=== PATIENT | male | born 1955 | race Caucasian/White ===

== ENCOUNTER 2016-08-03 18:05 | Inpatient (IN) | payer OTHER ==
[~2016-08-03 18:05] MED LIST: ALLOPURINOL100 M1 PO; AMBIEN5 M1 PO; AMILORIDE HCL5 M1 PO; AMOXICILLIN500 MG PO; AVINZA60 MG; BACTRIM DS TABL1 TAB PO; BYSTOLIC10 M1 PO; BYSTOLIC10 MG PO; CHANTIX1 M1 PO; COLACE100 M1 PO; COLCHICINE0.6 M2 PO; COLCRYS0.6 M1 PO; COMBIVENT INH14.7 GM; COMBIVENT RESPIM4 G1 INH; DIOVAN HCT 160/1 TAB; FA-80.8 M1 PO; FEOSOL325 M1 PO; FLOMAX0.4 M1 PO; FLUTICASONE PRO16 G1; INDOMETHACIN75 M1 PO; K-TAB ER20 ME1 PO; KLOR-CON M20 MEQ/TAB PO; LASIX40 M1 PO; LASIX80 M1 PO; LIPITOR10 M1 PO; METOLAZONE5 M1 PO; MORPHINE SULFAT15 M1 PO; MORPHINE SULFAT15 MG PO; MORPHINE SULFAT60 MG; MULTIVITAMIN1 TAB; NORCO 5/325 TAB1 TAB PO; OMEGA 31 CAP; PAIN & FEVER325 M1 PO; PROAIR HFA8.5 GM INH; PROTONIX40 M2 PO; PROTONIX40 MG; STOOL SOFTENER PO; STOP THE FOLLOWING:; SYMBICORT 160-1 PUFF INH; SYNTHROID50 MCG; TOPIRAMATE PO; TORSEMIDE100 M1 PO; VALIUM10 MG; VITAMIN B12500 MCG; WELLBUTRIN XL300 M3 PO; XANAX0.5 M1 PO; XARELTO20 M1 PO; ZAROXOLYN PO; [UNRECOGNIZED DRUG - REMARK]
[2016-08-03] MEDS ORDERED: CARAFATE1 G2 PO (18:58)
[2016-08-03 19:17] LABS: BASO % 0.3 % (0-2); BASO ABSOLUTE COUNT 0.1 tho/cmm (0.0-0.2); EOS % 1.1 % (0-7); EOSINOPHIL ABSOLUTE COUNT 0.2 tho/cmm (0.0-0.7); HCT-HEMATOCRIT 40.7 % (36.0-53.5); HGB-HEMOGLOBIN 12.9 gm/dl (13.5-17.0); IMMATURE GRANULOCYTES PERCENT 0.7 % (0-0.3); LYMPH % 9.2 % (20-45); LYMPH ABSOLUTE COUNT 1.4 tho/cmm (0.8-4.5); MCH (MEAN CORPUSCULAR HGB) 33.2 pg (28.0-32.0); MCHC MEAN CORPUSCULAR HGB CONC 31.7 % (32.0-36.0); MCV (MEAN CELL VOLUME) 104.9 fl (82.0-96.0); MEAN PLATELET VOLUME 10.3 cmc (9.4-12.4); MONO % 7.9 % (0-12); MONOCYTE ABSOLUTE COUNT 1.2 tho/cmm (0.0-1.2); NEUTROPHILS % 80.8 % (40-80); PLATELET COUNT 260 tho/cmm (150-450); RED BLOOD COUNT 3.88 mil/cmm (4.40-5.70); RED CELL DISTRIBUTION WIDTH 15.7 % (12.4-16.4); WHITE BLOOD COUNT 14.8 tho/cmm (4.0-10.0)
[2016-08-03 19:31] LABS: ALB/GLOB RATIO 0.6 (0.8-2.0); ALBUMIN 3.4 g/dl (3.5-5.0); ALKALINE PHOSPHATASE 112 U/L (33-138); ALT/SGPT 40 U/L (12-78); AMYLASE 46 U/L (20-90); ANION GAP 13 mmol/L (0-20); AST/SGOT 71 U/L (10-40); BILIRUBIN,TOTAL 1.9 mg/dl (0.0-1.5); BLOOD UREA NITROGEN 36 mg/dl (6-24); CALCIUM 9.3 mg/dl (8.5-10.5); CARBON DIOXIDE-VENOUS 29 mmol/L (22-32); CHLORIDE 101 mmol/l (96-110); CREATININE 2.31 mg/dl (0.60-1.30); GLUCOSE 129 mg/dL (70-110); LIPASE 611 U/L (73-393); POTASSIUM 4.3 mmol/L (3.7-5.1); SODIUM 139 mmol/L (135-145); eGFR VALUE FOR BLACK 34 mL/Min
[2016-08-03 19:54] LABS: URINE BILIRUBIN MODERATE (NEG); URINE BLOOD SMALL (NEG); URINE GLUCOSE (UA) NEGATIVE (NEG); URINE KETONE SMALL (NEG); URINE LEUKOCYTE ESTERASE POSITIVE (NEG); URINE NITRITE NEGATIVE (NEG); URINE PROTEIN SMALL (NEG); URINE SPECIFIC GRAVITY 1.015 (1.003-1.030)
[2016-08-03 19:55] LABS: URINE APPEARANCE HAZY; URINE COLOR ORANGE
[2016-08-03 19:59] LABS: URINE BACTERIA 1+
[2016-08-03 20:00] LABS: URINE RBC 0 /[HPF] (0-5); URINE WBC 0-3 /[HPF] (0-5)
[2016-08-04 05:01] LABS: BASO % 0.2 % (0-2); EOS % 2.1 % (0-7); EOSINOPHIL ABSOLUTE COUNT 0.2 tho/cmm (0.0-0.7); HCT-HEMATOCRIT 35.1 % (36.0-53.5); HGB-HEMOGLOBIN 10.9 gm/dl (13.5-17.0); IMMATURE GRANULOCYTES ABSOLUTE 0.06 tho/cmm (0-0.03); IMMATURE GRANULOCYTES PERCENT 0.6 % (0-0.3); LYMPH % 14.7 % (20-45); LYMPH ABSOLUTE COUNT 1.5 tho/cmm (0.8-4.5); MCH (MEAN CORPUSCULAR HGB) 32.8 pg (28.0-32.0); MCHC MEAN CORPUSCULAR HGB CONC 31.1 % (32.0-36.0); MCV (MEAN CELL VOLUME) 105.7 fl (82.0-96.0); MEAN PLATELET VOLUME 10.1 cmc (9.4-12.4); MONO % 7.1 % (0-12); MONOCYTE ABSOLUTE COUNT 0.7 tho/cmm (0.0-1.2); NEUTROPHIL ABSOLUTE COUNT 7.8 tho/cmm (1.6-8.0); NEUTROPHIL-AUTOMATED 7.8 tho/cmm (1.6-8.0); NEUTROPHILS % 75.3 % (40-80); PLATELET COUNT 207 tho/cmm (150-450); RED BLOOD COUNT 3.32 mil/cmm (4.40-5.70); RED CELL DISTRIBUTION WIDTH 15.9 % (12.4-16.4); WHITE BLOOD COUNT 10.3 tho/cmm (4.0-10.0)
[2016-08-04 05:08] LABS: INR 1.2 INR (0.9-1.1); PROTHROMBIN TIME 13.5 SECONDS (9.0-13.6)
[2016-08-04 05:16] LABS: ALB/GLOB RATIO 0.6 (0.8-2.0); ALBUMIN 2.7 g/dl (3.5-5.0); ALKALINE PHOSPHATASE 91 U/L (33-138); ALT/SGPT 32 U/L (12-78); AMYLASE 35 U/L (20-90); ANION GAP 11 mmol/L (0-20); AST/SGOT 49 U/L (10-40); BILIRUBIN,DIRECT 0.8 mg/dl (0.0-0.3); BILIRUBIN,INDIRECT 0.7 mg/dL (0.0-1.0); BILIRUBIN,TOTAL 1.5 mg/dl (0.0-1.5); BLOOD UREA NITROGEN 37 mg/dl (6-24); C-REACTIVE PROTEIN 11.2 mg/dl (0-0.9); CALCIUM 7.9 mg/dl (8.5-10.5); CARBON DIOXIDE-VENOUS 29 mmol/L (22-32); CHLORIDE 105 mmol/l (96-110); CREATININE 2.38 mg/dl (0.60-1.30); GLUCOSE 107 mg/dL (70-110); MAGNESIUM 1.3 mg/dl (1.3-2.6); PHOSPHOROUS 2.8 mg/dl (2.5-4.9); POTASSIUM 4.1 mmol/L (3.7-5.1); SODIUM 141 mmol/L (135-145); eGFR VALUE FOR BLACK 33 mL/Min
[2016-08-04 05:27] LABS: LIPASE 336 U/L (73-393); TSH-THYROID STIMULATING HORM. 4.05 uIU/ml (0.40-3.80)
[2016-08-05 13:59] LABS: URINE PRT/CR RATIO 0.07 Ratio (0.0-0.20); URINE TOTAL PROTEIN-RANDOM 5.6 mg/dl (<11.8)
--- NOTE | 2016-08-05 21:06 | NUR ---
VIRTUAL CARE NOTE: ASSESSMENT DEFERRED. PT EITHER WITH STAFF OR SLEEPING. WILL CONTINUE WITH CHART REVIEW.
[2016-08-06 06:14] LABS: ANION GAP 12 mmol/L (0-20); BLOOD UREA NITROGEN 25 mg/dl (6-24); CALCIUM 7.4 mg/dl (8.5-10.5); CARBON DIOXIDE-VENOUS 26 mmol/L (22-32); CHLORIDE 105 mmol/l (96-110); CREATININE 1.73 mg/dl (0.60-1.30); GLUCOSE 83 mg/dL (70-110); POTASSIUM 3.6 mmol/L (3.7-5.1); SODIUM 139 mmol/L (135-145); eGFR VALUE FOR BLACK 48 mL/Min
--- NOTE | 2016-08-06 13:38 | NUR ---
virtual care note: checked in with pt at this time, he is getting up from his chair to independently go for a walk. states he gets up and moves around frequently. does not have any questions or needs at this time. encouraged him to call staff if he needs anything. states he feels "much better" today than yesterday/last evening. hoping to discharge home soon. Pt has noted hx of CHF. did look back to see when his last echocardiogram was done, which was March 01, 2016 with an EF calculated at 60% per report. Pt on scheduled BP meds and lasix at home. will continue to monitor. electronic chart reviewed.
[2016-08-07 05:50] LABS: HGB-HEMOGLOBIN 10.5 gm/dl (13.5-17.0); PLATELET COUNT 258 tho/cmm (150-450)
[2016-08-07 06:10] LABS: ANION GAP 13 mmol/L (0-20); BLOOD UREA NITROGEN 23 mg/dl (6-24); CALCIUM 7.7 mg/dl (8.5-10.5); CARBON DIOXIDE-VENOUS 26 mmol/L (22-32); CHLORIDE 102 mmol/l (96-110); CREATININE 1.78 mg/dl (0.60-1.30); GLUCOSE 84 mg/dL (70-110); POTASSIUM 3.7 mmol/L (3.7-5.1); SODIUM 137 mmol/L (135-145); eGFR VALUE FOR BLACK 46 mL/Min
[2016-08-07] MEDS ORDERED: PERCOCET 5-3251 EACH PO (11:37)
[2017-01-19] MEDS ORDERED: OXYCONTIN10 M2 PO (10:35)
[2017-01-25] MEDS ORDERED: PROTONIX40 M2 PO (14:40)
[2017-01-25] MEDS ORDERED: OXYCONTIN10 M2 PO (14:42)
== END 2016-08-07 13:30 | DRG 439 ==
LOC: EDMED 18:05 → EMR2 21:16 → 5WD 22:30
PROVIDERS: Family Medicine; Physician Assistant; ADMIT Internal Medicine
PROC: 0DB68ZX Excision of Stomach, Via Natural or Artificial Opening Endoscopic, Diagnostic (ICD-10-PCS; principal; 2016-08-05)
PROC: 5A09357 Assistance with Respiratory Ventilation, Less than 24 Consecutive Hours, Continuous Positive Airway Pressure (ICD-10-PCS; 2016-08-07)
DX: K85.20 Alcohol induced acute pancreatitis without necrosis or infection (principal); Z68.42 Body mass index [BMI] 45.0-49.9, adult; D68.9 Coagulation defect, unspecified; K76.6 Portal hypertension; N17.9 Acute kidney failure, unspecified; N18.3 Chronic kidney disease, stage 3 (moderate); E11.22 Type 2 diabetes mellitus with diabetic chronic kidney disease; I13.0 Hypertensive heart and chronic kidney disease with heart failure and stage 1 through stage 4 chronic kidney disease, or unspecified chronic kidney disease; I50.30 Unspecified diastolic (congestive) heart failure; Z87.891 Personal history of nicotine dependence; K76.0 Fatty (change of) liver, not elsewhere classified; E66.01 Morbid (severe) obesity due to excess calories; Z86.718 Personal history of other venous thrombosis and embolism; K29.50 Unspecified chronic gastritis without bleeding; K21.9 Gastro-esophageal reflux disease without esophagitis; G47.33 Obstructive sleep apnea (adult) (pediatric); J44.9 Chronic obstructive pulmonary disease, unspecified; I35.0 Nonrheumatic aortic (valve) stenosis; N40.0 Benign prostatic hyperplasia without lower urinary tract symptoms; F10.20 Alcohol dependence, uncomplicated; K80.20 Calculus of gallbladder without cholecystitis without obstruction; M10.9 Gout, unspecified; D63.1 Anemia in chronic kidney disease; K31.89 Other diseases of stomach and duodenum
CPT/HCPCS: G0480; J1170; J1650; J2175; J2405; J7030